=== PATIENT | female | born 1935 | race African-American/Black ===

== ENCOUNTER 2023-03-10 17:21 | Emergency (ER) | payer OTHER ==
[~2023-03-10] VITALS: Ht 149.9 cm; Wt 45.8 kg
[2023-03-10 17:21] VITALS: BP 95/68; TEMP 97.7
[2023-03-10 17:43] LABS: PLATELET COUNT 307 K/uL (152-353)
[2023-03-10 17:54] LABS: POTASSIUM 3.5 mmol/L (3.6-5.2)
[2023-03-10] MEDS ORDERED: DQZATE100 MG PO (21:09)
[2023-03-10] MEDS ORDERED: CYPROHEPTADINE H4 MG PO (21:09)
[2023-03-10] MEDS ORDERED: TYLENOL325 MG PO (21:10)
[2023-03-10] MEDS ORDERED: LORA0.5T17 PO (21:11)
[2023-03-10] MEDS ORDERED: TRAMADOL HYDROC50 MG PO (21:12)
[2023-03-10] MEDS ORDERED: DULCOLAX5 MG PO (21:13)
[2023-03-10] MEDS ORDERED: REMERON SOLTAB15 MG PO (21:14)
[2023-03-10] MEDS ORDERED: MAGNSUS68 PO (21:14)
[2023-03-10] MEDS ORDERED: AMLODIPINE BESYLATE PO (21:15)
[2023-03-10] MEDS ORDERED: SPIRONOLACT25 MG PO (21:15)
[2023-03-10] MEDS ORDERED: FURO20TA67 PO (21:16)
[2023-03-10] MEDS ORDERED: HALO5INJ3 IM (21:16)
[2023-03-10] MEDS ORDERED: BOOST PO (21:17)
== END 2023-03-10 19:06 | disposition other institution (70) ==
LOC: ED 17:21
PROVIDERS: Family Medicine
DX: R45.1 Restlessness and agitation (principal); Z02.79 Encounter for issue of other medical certificate
CPT/HCPCS: 80053; 83735; 84484; 85027; 87635; 93005; 99285; U0003